=== PATIENT | male | born 1955 | race Caucasian/White ===

== ENCOUNTER 2019-05-13 20:51 | Observation (INO) ==
[2019-05-13 21:26] LABS: Basophils # 0.1 10*3/uL (0.0-0.2); Basophils % 0.5 % (0.0-0.8); Eosinophils # 0.4 10*3/uL (0.0-0.87); Eosinophils % 1.8 % (0.00-10.9); Hematocrit 40.2 VOL% (42.0-52.0); Hemoglobin 13.2 GM/DL (14.0-18.0); Immature Granulocytes % 1.2 %; Immature Granulocytes Absolute 0.24 #; Lymphocytes # 1.9 10*3/uL (1.4-4.0); Lymphocytes % 9.2 % (21.2-54.2); Mean Corpuscular HGB Conc 32.8 GM/DL (32-36); Mean Platelet Volume 11.5 FL (9.6-12.0); Monocytes % 5.5 % (1.7-12.7); Neutrophils % 81.8 % (38.7-73.9); Platelet Count 282 T/CUMM (130-400); Red Blood Count 4.73 MC/CUMM (3.8-5.5); White Blood Count 20.4 T/CUMM (4-12)
[2019-05-13 21:35] LABS: INR 0.9; PT Patient Result 9.8 SECS (9.6-12.2)
[2019-05-13 21:46] LABS: Band Neutrophils 3 % (0-10); Eosinophils 3 % (0-10); Lymphocytes 10 % (20-55); Platelet Estimate Adequate; Segmented Neutrophils 81 % (50-85); Total Cells Counted 100
[2019-05-13 21:49] LABS: Albumin 3.1 G/DL (3.4-5.0); Bilirubin,Total 0.4 MG/DL (0.2-1.0); Osmolality,Calculated 284.1 MOS/KG (273-304); Total Protein 6.5 G/DL (6.4-8.3)
[2019-05-13] MEDS ORDERED: LEVOFLOXACIN INJ 500 MG in PREMIX 1 EACH IV STA (22:43)
[2019-05-13] MEDS ORDERED: SODIUM CHLORIDE 0.9% 1,000 ML IV STA (22:44)
[2019-05-13 23:35] LABS: Apearance,Urine CLEAR (Clear); Bacteria,Urine Occasional /HPF (Few); Bilirubin,Urine Negative (Negative); Blood, Urine Negative (Negative); Glucose,Urine (UA) >=500 mg/dL (Negative); Hyaline Casts,Urine 27 /LPF (0-3); Ketones,Urine Negative (Negative); Mucus,Urine Occasional /LPF (Occasional); Nitrite,Urine Negative (Negative); Protein,Urine >=500 MG/DL; RBC,Urine 2 /HPF (0-4); Sperm,Urine Few /HPF (Negative); Urine Color Yellow (Yellow); Urine Specific Gravity 1.027 (1.001-1.035); Urine Urobilinogen < 2.0 EU/DL (0.2-1.0); WBC,Urine 2 /HPF (0-6)
[2019-05-14] MEDS ORDERED: ONDANSETRON 4 MG/2 ML VIAL IV PRN (00:59)
[2019-05-14] MEDS ORDERED: DEXTROSE 50% 25 GM/50 ML VIAL IV PRN (01:13)
[2019-05-14] MEDS ORDERED: GLUCAGON 1 MG VIAL IM PRN (01:13)
[2019-05-14] MEDS ORDERED: DEXTROSE 10% 250 ML IV PRN (01:50)
[2019-05-14] MEDS: SODIUM CHLORIDE 0.9% 1,000 ML IV SCH ×4 (02:21→22:34)
[2019-05-14 07:05] LABS: Basophils # 0.1 10*3/uL (0.0-0.2); Basophils % 0.5 % (0.0-0.8); Eosinophils # 0.4 10*3/uL (0.0-0.87); Eosinophils % 3.2 % (0.00-10.9); Hemoglobin 11.6 GM/DL (14.0-18.0); Immature Granulocytes % 0.6 %; Immature Granulocytes Absolute 0.08 #; Lymphocytes # 2.7 10*3/uL (1.4-4.0); Lymphocytes % 21.8 % (21.2-54.2); Mean Corpuscular HGB Conc 33.1 GM/DL (32-36); Monocytes % 6.7 % (1.7-12.7); Neutrophils % 67.2 % (38.7-73.9); Platelet Count 245 T/CUMM (130-400); Red Blood Count 4.07 MC/CUMM (3.8-5.5); Red Cell Distribution Width 13.2 % (9.3-17.3); White Blood Count 12.5 T/CUMM (4-12)
[2019-05-14 07:34] LABS: Albumin 2.5 G/DL (3.4-5.0); Bilirubin,Total 0.5 MG/DL (0.2-1.0); Calcium 8.5 MG/DL (8.5-10.1); Risk Ratio 4.06; Total Protein 5.5 G/DL (6.4-8.3); VLDL CHOLESTEROL 38.2 MG/DL
[2019-05-14] MEDS: LEVOTHYROXINE 100 MCG TABLET PO SCH (08:09)
[2019-05-14] MEDS: OLMESARTAN 20 MG TABLET PO SCH (08:46)
[2019-05-14] MEDS: PANTOPRAZOLE 40 MG TABLET PO SCH (08:47)
[2019-05-14] MEDS: hydroCHLOROthiazide 25 MG TABLET PO SCH (08:47)
[2019-05-14] MEDS: INSULIN REGULAR 100 UNIT/ML SUBCUT SCH ×4 (08:47→22:02)
[2019-05-14] MEDS ORDERED: ASPIRIN 325 MG TABLET PO SCH (09:00)
[2019-05-14] MEDS ORDERED: ROSUVASTATIN 10 MG TABLET PO SCH (09:00)
[2019-05-14] MEDS ORDERED: ENOXAPARIN 40 MG/0.4 ML SYRINGE SUBCUT SCH (09:00)
[2019-05-14] MEDS: POTASSIUM CHLORIDE 20 MEQ TABLET PO SCH (13:07)
[2019-05-14] MEDS ORDERED: ROSUVASTATIN 20 MG TABLET PO SCH (17:17)
[2019-05-14] MEDS ORDERED: LEVOFLOXACIN INJ 500 MG in PREMIX 1 EACH IV SCH (21:00)
[2019-05-15] MEDS ORDERED: POTASSIUM CHLORIDE 20 MEQ TABLET PO PRN (01:22)
[2019-05-15] MEDS ORDERED: INSULIN REGULAR 100 UNIT/ML SUBCUT ONE (01:27)
[2019-05-15] MEDS: SODIUM CHLORIDE 0.9% 1,000 ML IV SCH (01:34)
[2019-05-15 04:51] LABS: Basophils % 0.5 % (0.0-0.8); Eosinophils # 0.6 10*3/uL (0.0-0.87); Eosinophils % 6.6 % (0.00-10.9); Hematocrit 35.4 VOL% (42.0-52.0); Hemoglobin 11.6 GM/DL (14.0-18.0); Immature Granulocytes % 0.5 %; Immature Granulocytes Absolute 0.04 #; Lymphocytes # 2.5 10*3/uL (1.4-4.0); Lymphocytes % 28.7 % (21.2-54.2); Mean Corpuscular HGB Conc 32.8 GM/DL (32-36); Mean Corpuscular Volume 86.6 FL (87-102); Mean Platelet Volume 12.1 FL (9.6-12.0); Monocytes % 8.2 % (1.7-12.7); Neutrophils % 55.5 % (38.7-73.9); Platelet Count 242 T/CUMM (130-400); Red Blood Count 4.09 MC/CUMM (3.8-5.5); White Blood Count 8.8 T/CUMM (4-12)
[2019-05-15 05:30] LABS: Calcium 8.5 MG/DL (8.5-10.1); Osmolality,Calculated 288.1 MOS/KG (273-304)
[2019-05-15] MEDS: LEVOTHYROXINE 100 MCG TABLET PO SCH (06:10)
[2019-05-15 07:43] VITALS: BP 140/75
[2019-05-15] MEDS ORDERED: CLOPIDOGREL 75 MG TABLET PO SCH (09:00)
[2019-05-15] MEDS: INSULIN REGULAR 100 UNIT/ML SUBCUT SCH (09:07)
[2019-05-15] MEDS: POTASSIUM CHLORIDE 20 MEQ TABLET PO SCH (09:08)
[2019-05-15] MEDS: hydroCHLOROthiazide 25 MG TABLET PO SCH (09:08)
[2019-05-15] MEDS: PANTOPRAZOLE 40 MG TABLET PO SCH (09:09)
[2019-05-15] MEDS: OLMESARTAN 20 MG TABLET PO SCH (09:09)
== END 2019-05-15 11:51 | disposition home or self-care (01) ==
LOC: EDUNIT# → EDBD → N.EDINP 20:51 → N.ED 20:51 → N.2E 05-14 01:23
PROVIDERS: ADMIT Internal Medicine; ATTEND Internal Medicine

== ENCOUNTER 2021-07-27 19:10 | Observation (INO) ==
[2021-07-27] MEDS ORDERED: PIPERACILLIN/TAZOBACTAM 3,375 MG in SODIUM CHLORIDE 0.9% 100 ML IV STA (20:03)
[2021-07-27 20:24] LABS: Basophils # 0.1 10*3/uL (0.0-0.2); Basophils % 0.4 % (0.0-0.8); Eosinophils # 0.5 10*3/uL (0.0-0.87); Eosinophils % 3.2 % (0.00-10.9); Hematocrit 39.7 VOL% (42.0-52.0); Hemoglobin 12.4 GM/DL (14.0-18.0); Immature Granulocytes % 0.8 %; Immature Granulocytes Absolute 0.13 #; Lymphocytes # 1.8 10*3/uL (1.4-4.0); Lymphocytes % 10.5 % (21.2-54.2); Mean Corpuscular HGB Conc 31.2 GM/DL (32-36); Mean Corpuscular Volume 85.6 FL (87-102); Mean Platelet Volume 10.3 FL (9.6-12.0); Monocytes % 7.3 % (1.7-12.7); Neutrophils % 77.8 % (38.7-73.9); Platelet Count 456 T/CUMM (130-400); Red Blood Count 4.64 MC/CUMM (3.8-5.5); Red Cell Distribution Width 13.5 % (9.3-17.3); White Blood Count 16.8 T/CUMM (4-12)
[2021-07-27 20:50] LABS: Alanine Aminotransferase 18 U/L (16-61); Alkaline Phosphatase 110 U/L (45-117); Aspartate Amino Transferase 15 U/L (0-37); Bilirubin,Total < 0.39 MG/DL (0.20-1.00); Blood Urea Nitrogen 21 MG/DL (7-18); Calcium 9.3 MG/DL (8.5-10.1); Carbon Dioxide 28 MMOL/L (21-32); Estimated Glom Filtration Rate 55 ML/MIN; Glucose 182 MG/DL (74-106); Potassium 3.9 MMOL/L (3.5-5.1); Sodium 136 MMOL/L (136-145); Total Protein 7.9 G/DL (6.4-8.2)
[2021-07-27] MEDS: SODIUM CHLORIDE 0.9% 1,000 ML IV SCH (21:45)
[2021-07-27] MEDS ORDERED: ACETAMINOPHEN 325 MG TABLET PO PRN (23:07)
[2021-07-27] MEDS ORDERED: GLUCAGON 1 MG VIAL IM PRN (23:07)
[2021-07-27] MEDS ORDERED: DEXTROSE 50% 25 GM/50 ML VIAL IV PRN (23:07)
[2021-07-27] MEDS ORDERED: ONDANSETRON 4 MG/2 ML VIAL IV PRN (23:07)
[2021-07-27] MEDS ORDERED: hydrALAZINE 20 MG/1 ML VIAL IV PRN (23:07)
[2021-07-28] MEDS ORDERED: PIPERACILLIN/TAZOBACTAM 3,375 MG in SODIUM CHLORIDE 0.9% 100 ML IV SCH (04:00)
[2021-07-28 06:15] LABS: Basophils # 0.1 10*3/uL (0.0-0.2); Basophils % 0.6 % (0.0-0.8); Eosinophils # 0.5 10*3/uL (0.0-0.87); Eosinophils % 3.4 % (0.00-10.9); Hematocrit 39.2 VOL% (42.0-52.0); Hemoglobin 12.5 GM/DL (14.0-18.0); Immature Granulocytes % 0.5 %; Immature Granulocytes Absolute 0.07 #; Lymphocytes # 1.7 10*3/uL (1.4-4.0); Lymphocytes % 11.9 % (21.2-54.2); Mean Corpuscular HGB Conc 31.9 GM/DL (32-36); Mean Corpuscular Volume 85.6 FL (87-102); Mean Platelet Volume 10.2 FL (9.6-12.0); Monocytes % 8.6 % (1.7-12.7); Platelet Count 413 T/CUMM (130-400); Red Blood Count 4.58 MC/CUMM (3.8-5.5); Red Cell Distribution Width 13.3 % (9.3-17.3); White Blood Count 13.9 T/CUMM (4-12)
[2021-07-28] MEDS ORDERED: LEVOTHYROXINE 100 MCG TABLET PO SCH (06:30)
[2021-07-28 06:50] LABS: Calcium 9.2 MG/DL (8.5-10.1); Osmolality,Calculated 278.7 MOS/KG (273-304)
[2021-07-28] MEDS ORDERED: INSULIN REGULAR 100 UNIT/ML SUBCUT SCH (07:30)
[2021-07-28 07:36] VITALS: BP 153/79
[2021-07-28] MEDS ORDERED: PANTOPRAZOLE 40 MG TABLET PO SCH (09:00)
[2021-07-28] MEDS ORDERED: GABAPENTIN 100 MG CAPSULE PO SCH (09:00)
[2021-07-28] MEDS ORDERED: CLOPIDOGREL 75 MG TABLET PO SCH (09:00)
[2021-07-28] MEDS ORDERED: ASPIRIN 325 MG TABLET PO SCH (09:00)
[2021-07-28] MEDS ORDERED: ROSUVASTATIN 20 MG TABLET PO SCH (09:00)
[2021-07-28] MEDS: SODIUM CHLORIDE 0.9% 1,000 ML IV SCH (09:10)
[2021-07-28] MEDS ORDERED: DEXTROSE 50% 25 GM/50 ML VIAL IV PRN (09:51)
[2021-07-28] MEDS ORDERED: GLUCAGON 1 MG VIAL IM PRN (09:51)
[2021-07-28] MEDS ORDERED: COLLAGENASE OINT 30 GM TUBE TOP SCH (10:00)
[2021-07-28] MEDS ORDERED: SODIUM HYPOCHLORITE 0.25% IRRIG 473 ML BOTTLE TOP SCH (11:00)
[2021-07-28] MEDS ORDERED: AMITRIPTYLINE 25 MG TABLET PO SCH (21:00)
[2021-07-28] MEDS ORDERED: ENOXAPARIN 40 MG/0.4 ML SYRINGE SUBCUT SCH (21:00)
[2021-07-28] MEDS ORDERED: FLUoxetine 20 MG CAPSULE PO SCH (21:00)
== END 2021-07-28 11:27 | disposition home or self-care (01) ==
LOC: N.ED 19:10 → N.3E 23:07 → INTOOBSV 23:07 → N.3E 07-28 02:20
PROVIDERS: ADMIT Internal Medicine; ATTEND Internal Medicine

== ENCOUNTER 2021-08-18 06:10 | Inpatient (IN) ==
[2021-08-18] MEDS: LACTATED RINGERS 1,000 ML IV SCH ×3 (07:50→17:51)
[2021-08-18] MEDS ORDERED: BUPIVACAINE MPF 0.25% 30 ML VIAL ONE (07:58)
[2021-08-18] MEDS ORDERED: LIDOCAINE 1% 50 ML VIAL ONE (07:59)
[2021-08-18] MEDS ORDERED: DEXAMETHASONE 4 MG/1 ML VIAL ONE (08:01)
[2021-08-18] MEDS ORDERED: propofoL 200 MG/20 ML VIAL IV ONE (08:01)
[2021-08-18] MEDS ORDERED: LIDOCAINE 2% 5 ML VIAL ONE (08:01)
[2021-08-18] MEDS ORDERED: ONDANSETRON 4 MG/2 ML VIAL ONE (08:01)
[2021-08-18] MEDS ORDERED: fentaNYL 100 MCG/2 ML VIAL ONE (08:02)
[2021-08-18] MEDS ORDERED: MIDAZOLAM 2 MG/2 ML VIAL ONE (08:02)
[2021-08-18 08:07] LABS: Calcium 9.5 MG/DL (8.5-10.1); Osmolality,Calculated 280.1 MOS/KG (273-304); Potassium 4.8 MMOL/L (3.5-5.1)
[2021-08-18] MEDS ORDERED: SEVOFLURANE 1 UNIT/15 MINUTE INH ONE (08:20)
[2021-08-18] MEDS ORDERED: KETOROLAC 30 MG/1 ML VIAL ONE (08:28)
[2021-08-18] MEDS ORDERED: ACETAMINOPHEN INJ 1,000 MG/100 ML VIAL IV ONE (08:28)
[2021-08-18] MEDS ORDERED: PHENYLEPHRINE 1 MG/10 ML SYRINGE IV ONE ×2 (08:29→08:41)
[2021-08-18] MEDS ORDERED: ePHEDrine 50 MG/ML VIAL ONE (08:41)
[2021-08-18] MEDS ORDERED: PROMETHAZINE 25 MG/1 ML VIAL IM PRN (14:28)
[2021-08-18] MEDS ORDERED: ONDANSETRON 4 MG/2 ML VIAL IV PRN (14:28)
[2021-08-18] MEDS ORDERED: HYDROmorphone 2 MG/1 ML VIAL IV PRN (14:28)
[2021-08-18] MEDS ORDERED: GLUCAGON 1 MG VIAL IM PRN (14:28)
[2021-08-18] MEDS ORDERED: DEXTROSE 50% 25 GM/50 ML SYRINGE IV PRN (14:31)
[2021-08-18] MEDS ORDERED: LEVOFLOXACIN INJ 500 MG/100 ML PREMIX IV SCH (15:00)
[2021-08-18] MEDS: INSULIN REGULAR 100 UNIT/ML SUBCUT SCH ×3 (16:40→21:19)
[2021-08-18] MEDS ORDERED: CLOPIDOGREL 75 MG TABLET PO SCH (17:00)
[2021-08-18] MEDS ORDERED: ASPIRIN 325 MG TABLET PO SCH (17:00)
[2021-08-18] MEDS ORDERED: GABAPENTIN 100 MG CAPSULE PO SCH (21:00)
[2021-08-18] MEDS: CLINDAMYCIN INJ 600 MG/50 ML PREMIX IV SCH (21:20)
[2021-08-19] MEDS: LACTATED RINGERS 1,000 ML IV SCH (01:15)
[2021-08-19] MEDS: CLINDAMYCIN INJ 600 MG/50 ML PREMIX IV SCH (04:31)
[2021-08-19 06:16] LABS: Basophils % 0.2 % (0.0-0.8); Eosinophils # 0.1 10*3/uL (0.0-0.87); Eosinophils % 0.5 % (0.00-10.9); Hematocrit 31.7 VOL% (42.0-52.0); Hemoglobin 9.8 GM/DL (14.0-18.0); Immature Granulocytes Absolute 0.14 #; Lymphocytes # 1.4 10*3/uL (1.4-4.0); Lymphocytes % 9.6 % (21.2-54.2); Mean Corpuscular HGB Conc 30.9 GM/DL (32-36); Mean Corpuscular Volume 83.4 FL (87-102); Mean Platelet Volume 10.2 FL (9.6-12.0); Monocytes % 8.1 % (1.7-12.7); Neutrophils % 80.6 % (38.7-73.9); Platelet Count 603 T/CUMM (130-400); Red Cell Distribution Width 13.2 % (9.3-17.3); White Blood Count 14.1 T/CUMM (4-12)
[2021-08-19] MEDS ORDERED: PANTOPRAZOLE 40 MG TABLET PO SCH (06:30)
[2021-08-19] MEDS ORDERED: LEVOTHYROXINE 100 MCG TABLET PO SCH (06:30)
[2021-08-19 06:31] LABS: Calcium 9.4 MG/DL (8.5-10.1); Potassium 4.2 MMOL/L (3.5-5.1)
[2021-08-19] MEDS ORDERED: LEVOFLOXACIN 500 MG TABLET PO SCH (07:30)
[2021-08-19 07:58] VITALS: BP 150/66
[2021-08-19] MEDS ORDERED: ROSUVASTATIN 20 MG TABLET PO SCH (09:00)
[2021-08-19] MEDS ORDERED: OMEGA 3 ACID ETHYL ESTERS 1 GM CAPSULE PO SCH (09:00)
[2021-08-19] MEDS ORDERED: FLUoxetine 20 MG CAPSULE PO SCH (09:00)
[2021-08-19] MEDS ORDERED: ENOXAPARIN 40 MG/0.4 ML SYRINGE SUBCUT SCH (09:00)
[2021-08-19] MEDS ORDERED: CLINDAMYCIN 300 MG CAPSULE PO SCH (14:00)
== END 2021-08-19 10:51 | disposition home health service (06) | DRG 256 ==
LOC: N.OR 06:10 → N.SDSINP 06:14 → N.3E 16:07
PROVIDERS: ADMIT Surgery; ATTEND Surgery